=== PATIENT | male | born 1960 | race Caucasian/White ===

== ENCOUNTER 2018-01-31 08:30 | Inpatient (IN) ==
[2018-01-25 18:15] LABS: Appearance,Urine CLEAR; Bilirubin,Urine NEG (NEG); Color,Urine YELLOW; Glucose,Urine (UA) NEGATIVE (NEG); Leukocyte Esterase,Urine NEG /uL (NEG); Protein,Urine NEG (NEG); Specific Gravity,Urine 1.014 (1.000-1.035); Urine Blood NEG mg/dL (<0.03); Urobilinogen,Urine NEG (NEG)
[2018-01-25 18:33] LABS: Basophils # (Auto) 0 K/mcL (0.0-0.3); Basophils % (Auto) 0.5 % (0.0-2.0); Eosinophils # (Auto) 0.2 K/mcL (0.0-0.7); Eosinophils % (Auto) 2.3 % (0.0-7.0); Granulocytes % (Auto) 59.5 % (38.0-78.0); Lymphocytes # (Auto) 2.5 K/mcL (1.5-4.8); Lymphocytes % (Auto) 29.8 % (15.5-49.0); Mean Cell Volume 91.2 fL (80.0-100.0); Mean Corpuscular HGB Conc 33.3 g/dL (31.0-36.0); Mean Corpuscular Hemoglobin 30.3 pg (26.0-34.0); Monocytes # (Auto) 0.7 K/mcL (0.1-0.9); Monocytes % (Auto) 7.9 % (1.0-12.0); Platelet Count 307 K/mcL (140-440); RBC 4.77 M/mcL (4.50-5.90); Red Cell Distribution Width 14.3 % (11.5-14.5)
[2018-01-25 19:20] LABS: Blood Urea Nitrogen 6 mg/dl (6-20)
[~2018-01-31 08:30] MED LIST: 0.9 % SODIUM CHLORIDE 9 ML, KETOROLAC 30 MG, ROPIVACAINE HCL/PF 49.5 ML, EPINEPHrine 0.... IJ SCH; CELECOXIB 200 MG CAPSULE PO SCH; PREGABALIN 75 MG CAPSULE PO SCH; ceFAZolin 1 GM VIAL IV SCH
[2018-01-31] MEDS ORDERED: oxyCODONE 10 MG TAB.ER.12H PO SCH (10:15)
[2018-01-31] MEDS ORDERED: NICOTINE 21 MG PATCH TOPICAL ONE (11:16)
[2018-01-31] MEDS ORDERED: DEXAMETHASONE 10 MG/ML VIAL IV ONE (12:45)
[2018-01-31] MEDS ORDERED: KETAMINE 100 MG/ML ML IV ONE (12:45)
[2018-01-31] MEDS ORDERED: ePHEDrine 50 MG/ML AMPUL IV ONE (12:45)
[2018-01-31] MEDS ORDERED: MIDAZOLAM 2 MG/2 ML VIAL IV ONE (12:45)
[2018-01-31] MEDS ORDERED: LIDOCAINE HCL/PF 100 MG/5 ML SYRINGE IV ONE (12:45)
[2018-01-31] MEDS ORDERED: PROPOFOL 200 MG/20 ML VIAL IV ONE (12:45)
[2018-01-31] MEDS ORDERED: TRANEXAMIC ACID 1,000 MG/10 ML VIAL IV ONE (12:45)
[2018-01-31] MEDS ORDERED: ROPIVACAINE HCL/PF 20 ML VIAL IJ ONE (12:45)
[2018-01-31] MEDS ORDERED: GLYCOPYRROLATE 0.2 MG/ML VIAL IV ONE (12:45)
[2018-01-31] MEDS ORDERED: PHENYLEPHRINE 10 MG/ML VIAL IV ONE (12:45)
[2018-01-31] MEDS ORDERED: ONDANSETRON 4 MG/2 ML VIAL IV ONE (12:45)
[2018-01-31] MEDS ORDERED: GENTAMICIN SULFATE 800 MG/20 ML VIAL IR ONE (13:05)
[2018-01-31] MEDS ORDERED: METHOCARBAMOL 1,000 MG/10 ML VIAL IV PRN (13:25)
[2018-01-31] MEDS ORDERED: LACTATED RINGERS 250 ML IV PRN (13:25)
[2018-01-31] MEDS ORDERED: BENZOCAINE/MENTHOL 1 LOZENGE PO PRN ×2 (13:25→14:33)
[2018-01-31] MEDS ORDERED: IPRATROPIUM/ALBUTEROL 3 ML AMPUL.NEB NEB PRN (13:25)
[2018-01-31] MEDS ORDERED: FLUMAZENIL 0.1 MG/ML ML IV PRN (13:25)
[2018-01-31] MEDS ORDERED: METOCLOPRAMIDE 10 MG/2 ML VIAL IV PRN (13:25)
[2018-01-31] MEDS ORDERED: ONDANSETRON 4 MG/2 ML VIAL IV PRN ×2 (13:25→14:33)
[2018-01-31] MEDS ORDERED: fentaNYL 100 MCG/2 ML VIAL IV PRN (13:25)
[2018-01-31] MEDS ORDERED: ACETAMINOPHEN 1,000 MG/100 ML BOTTLE IV ONE (13:25)
[2018-01-31] MEDS ORDERED: NALOXONE HCL 0.4 MG/ML VIAL IV PRN (13:25)
[2018-01-31] MEDS ORDERED: KETOROLAC 30 MG/ML VIAL IV PRN (13:25)
[2018-01-31] MEDS ORDERED: LACTATED RINGERS 1,000 ML IV SCH (13:30)
--- NOTE | 2018-01-31 14:32 | Brief Operative Note ---
Date of procedure: 01/31/18 Pre-op diagnosis: left knee oa Post-op diagnosis: same Procedure: left total knee arthroplasty Grafts/Implants: Yes Anesthesia: spinal Complications: none Surgeon: Vel Camp Tar Chaser: Radha Pichardo Estimated blood loss (cc): 150 Tourniquet Time (Minutes): 68 Specimens Removed/Pathology: none sent Condition: stable Disposition: PACU
[2018-01-31] MEDS ORDERED: FLEETS ADULT ENEMA PR PRN (14:33)
[2018-01-31] MEDS ORDERED: ONDANSETRON ODT 4 MG TABLET SL PRN (14:33)
[2018-01-31] MEDS ORDERED: TRANEXAMIC ACID 1,000 MG/10 ML VIAL IV SCH (14:33)
[2018-01-31] MEDS ORDERED: MAGNESIUM HYDROXIDE 30 ML ORAL.SUSP PO PRN (14:33)
[2018-01-31] MEDS ORDERED: POLYETHYLENE GLYCOL 3350 17 GM PACKET PO PRN (14:33)
[2018-01-31] MEDS ORDERED: BISACODYL 10 MG SUPP.RECT PR PRN (14:33)
[2018-01-31] MEDS ORDERED: METHOCARBAMOL 500 MG TABLET PO SCH (14:45)
--- NOTE | 2018-01-31 15:16 | XRay Report ---
HISTORY: Postop left knee arthroplasty FINDINGS: There is a well-positioned left total knee prosthesis. No fracture is present. There are small soft tissue calcifications along the anterior and lateral margin of the joint. IMPRESSION: Well-positioned left knee prosthesis Interpreted and Authenticated by: Suhas Canada 01/31/18
--- NOTE | 2018-01-31 15:39 | Operative Note ---
DATE OF OPERATION: 01/31/2018 PREOPERATIVE DIAGNOSIS: Degenerative joint disease, left knee. POSTOPERATIVE DIAGNOSIS: Degenerative joint disease, left knee. PROCEDURE: Left total knee arthroplasty. SURGEON: Lynsey Camp M.D. RECOVERY ROOM RN SURGEON: Radha Pichardo PA-C ANESTHESIA: Spinal with LMA assist. ESTIMATED BLOOD LOSS: 150 mL COMPLICATIONS: None noted. SPECIMENS REMOVED: None. DRAINS: None. TOURNIQUET TIME: 63 minutes at 300 mmHg. IMPLANTS: DePuy Attune tibial insert fixed bearing posterior stabilized size 9, 6 mm AOX, DePuy Attune patella medialized dome 41 mm cemented AOX, DePuy Attune femoral posterior stabilized size 9 left cemented, DePuy Attune tibial based fixed bearing size 7 cemented. INDICATIONS: The patient has had a long-standing history of worsening pain in the knee that has failed conservative treatment. Radiographs have confirmed advanced degenerative joint disease. After a long discussion about treatment options, the patient elected to proceed with a knee arthroplasty. The risks and benefits were discussed with the patient in detail including, but not limited to, the risks of anesthesia, problems with the heart or lungs related to anesthesia, infection, compromise or injury to the nerves and blood vessels, deep venous thrombosis, pulmonary embolism, pneumonia, continued pain after surgery, worsening pain or symptoms after surgery, swelling, loss of motion, instability, leg length discrepancy, and need for repeat surgery. DESCRIPTION OF PROCEDURE: The patient was seen in the pre-anesthesia waiting room where all questions were answered and the correct side and site were identified and marked. The patient was transferred to the operating room and administered the anesthetic and given pre-operative antibiotics. A time-out was then called. The extremity was prepped and draped, exsanguinated, and the tourniquet was inflated to 300 mmHg. A midline skin incision was then made with a standard medial parapatellar arthrotomy. Debridement of the menisci, ACL, and PCL was performed followed by balancing releases in the medial lateral plane. We then established intramedullary access to both the femur and tibia in a standard fashion. The femoral guide sandra was initially placed with the distal femoral guide, pinned into place, and the distal femoral cut was performed and checked with a flat plate. We then turned our attention to the tibia. The intramedullary guide was placed with the proximal tibial cutting block. The block was appropriately positioned off the affected side, varus and valgus was checked with the extra-medullary guide, and the block was pinned into place. The proximal tibial cut was performed and the tibia was prepared for the tibial implant with appropriate rotation. The tibia, femur, and posterior compartment were debrided of osteophytes, loose bodies, and meniscal fragments We then used the gap balancing technique to balance extension with the first two cuts and good balancing was obtained with a 10 millimeter gap block. We turned our attention back to the femur and used the referencing block and implant to size appropriately. Using the gap balancing technique for the flexion space we set our rotation of the femur off the tibial cut. Anesthesia gave the patient 1 gram of Tranexamic Acid via an intravenous route. We placed the 4 in 1 cutting block and made anterior, posterior, and chamfer cuts. Box plasty cuts were then made in a standard fashion for the posterior stabilized prosthesis. We then completed osteophyte release and posterior capsule release from the posterior compartment. Trials were placed and we chose the polyethylene insert thickness that provided the best stability in all planes. With the trials in place, we did a measured resection for a resurfacing patella. We sized the patella and placed the patella trial and performed a lateral facetectomy with the saw and rongeur. Good tracking was obtained. We removed all trials, irrigated and dried all cut surfaces. We cemented the components into place including tibia, femur and patella. We placed a trial liner and held the knee in full extension with the patella compressed while the cement cured. We then removed all excess cement and placed the final polyethylene tibiofemoral component. Irrigation with 3 liters of antibiotic saline was then performed using jet-lavage. We let the tourniquet down and coagulated bleeding vessels. We injected a 100 cubic centimeter volume including Ropivacaine 49.25 cubic centimeters at 5 milligrams per cubic centimeter, Ketorolac 30 milligrams, and Epinephrine 0.5 milligrams into 100 cubic centimeters volume of normal saline. We placed a deep drain and closed the retinaculum with looped #0 Maxon. We closed the subcutaneous tissue and skin in layers out to nemesio in the skin. A sterile pressure dressing was applied. All needle and sponge counts were correct. The patient was transferred to the recovery room in stable condition. MIKE:[email or web address] Job ID: [id number] Doc ID: [id number] Lynsey Camp MD
[2018-01-31] MEDS: 0.9 % SODIUM CHLORIDE 1,000 ML IV SCH (15:52)
[2018-01-31] MEDS: HYDROcodone/APAP 10/325MG TABLET PO PRN ×3 (16:28→22:33)
[2018-01-31] MEDS: METHOCARBAMOL 750 MG TABLET PO PRN (16:32)
[2018-01-31] MEDS ORDERED: HYDROmorphone 2 MG TABLET PO SCH (18:00)
[2018-01-31] MEDS: KETOROLAC 30 MG/ML VIAL IV SCH (18:10)
[2018-01-31] MEDS: HYDROmorphone 2 MG/ML VIAL IV PRN ×2 (19:43→22:33)
[2018-01-31] MEDS: SENNOSIDES 1 TABLET PO SCH (20:26)
[2018-01-31] MEDS: DOCUSATE SODIUM 100 MG CAPSULE PO SCH (20:26)
[2018-01-31] MEDS: ASPIRIN 325 MG ENTERIC COATED TABLET PO SCH (20:27)
[2018-01-31] MEDS: ceFAZolin 1 GM VIAL IV SCH (20:27)
[2018-01-31] MEDS: PRAMIPEXOLE DI HCL 1.5 MG PO SCH (22:34)
[2018-01-31] MEDS: 0.9 % SODIUM CHLORIDE 10 ML SYRINGE IV SCH (22:35)
[2018-02-01] MEDS: HYDROcodone/APAP 10/325MG TABLET PO PRN ×7 (00:32→23:07)
[2018-02-01] MEDS: 0.9 % SODIUM CHLORIDE 1,000 ML IV SCH ×4 (00:32→23:08)
[2018-02-01] MEDS: KETOROLAC 30 MG/ML VIAL IV SCH ×5 (00:32→23:07)
[2018-02-01] MEDS: HYDROmorphone 2 MG/ML VIAL IV PRN ×5 (01:17→16:25)
[2018-02-01] MEDS ORDERED: DIAZEPAM 2 MG TABLET PO ONE (01:44)
[2018-02-01] MEDS ORDERED: DIAZEPAM 5 MG TABLET PO ONE (01:46)
[2018-02-01] MEDS ORDERED: DIAZEPAM 5 MG TABLET ONE (01:56)
[2018-02-01] MEDS: METHOCARBAMOL 750 MG TABLET PO PRN ×3 (02:39→14:54)
[2018-02-01] MEDS: ceFAZolin 1 GM VIAL IV SCH (05:00)
[2018-02-01] MEDS: 0.9 % SODIUM CHLORIDE 10 ML SYRINGE IV SCH ×3 (05:04→23:09)
--- NOTE | 2018-02-01 07:24 | Orthopedic Progress Note ---
Subjective Patient information: Note initiated : 02/01/18 at 7:20 am Service Date, if different from initiated Date: [] Patient: Nathen Mckeon 57 y/o M admitted on 01/31/18 for Left Total Knee Arthroplasty. Chief Complaint: [POD #1 s/p left TKA Doing okay. Reports moderate to severe pain. Has not yet ambulated independently and is requesting more pain medication. Denies CP, SOB, numbness, tingling, calf pain. Chronically takes opioids and has high tolerance to pain medication. ] Objective Vital signs: Vital Signs Temp Pulse Resp BP BP Pulse Ox 02/01/18 04:00 97.9 F 88 24 H 110/73 93 02/01/18 00:00 98.6 F 91 H 24 H 116/72 93 01/31/18 20:09 98.9 F 107 H 24 H 135/81 92 01/31/18 19:54 112 H 139/83 01/31/18 19:39 116 H 155/81 93 01/31/18 19:24 106 H 146/93 94 01/31/18 19:09 123 H 143/87 01/31/18 18:54 109 H 127/77 01/31/18 18:41 107 H 95 01/31/18 18:24 106 H 117/66 92 01/31/18 18:11 101 H 109/74 96 01/31/18 17:54 95 H 131/81 95 01/31/18 15:45 136/75 95 01/31/18 15:28 97.2 F 78 14 141/79 93 01/31/18 15:19 79 12 140/83 93 01/31/18 15:14 78 11 L 119/79 93 01/31/18 15:09 82 11 L 113/68 91 01/31/18 15:04 80 12 135/74 92 01/31/18 14:59 84 12 126/76 93 01/31/18 14:54 97.9 F 82 14 144/84 96 01/31/18 09:36 97.3 F 20 128/84 96 Intake and Output 01/31/18 02/01/18 02/01/18 21:59 05:59 13:59 Intake Total 1899 2551 / 2551 Output Total 575 / 575 Balance [id number] Intake: IV 1000 / 1000 Sodium Chloride 0.9% 1,000 ml @ 1000 / 1000 125 mls/hr IV .Q8H [facility] Rx#: [id number] Oral 1551 / 1551 IV - Manual Only 1899 Output: Void Amount 575 / 575 Estimated Blood Loss Other: Urine Appearance Clear Clear Straight Clear Urine Color Bright Yellow Bright Yellow Straight Bright Yellow Urine Odor Strong Weight 258 lb Intake & Output: Intake & Output 01/31/18 02/01/18 02/01/18 21:59 05:59 13:59 Intake Total 1899 2551 / 2551 Output Total 575 / 575 Balance 1869 Weight 258 lb Intake: IV 1000 / 1000 Sodium Chloride 0.9% 1,000 ml @ 1000 / 1000 125 mls/hr IV .Q8H [facility] Rx#: [id number] Oral 1551 / 1551 IV - Manual Only 1899 Output: Void Amount 575 / 575 Estimated Blood Loss Other: Urine Appearance Clear Clear Straight Clear Urine Color Bright Yellow Bright Yellow Straight Bright Yellow Urine Odor Strong Incision: Yes healing, No draining, No red, No swollen, No inflamed, Yes clean and dry Incision clean and dry: Yes Dressing: Yes clean, Yes dry, Yes intact Weight bearing status: as tolerated Range of motion: full ankle/feet Neurological exam IM: Yes alert, Yes oriented X3, Yes motor sensory intact, Yes neurovascular intact Extremities exam IM: No calf tenderness, Yes normal capillary refill, Yes Foot pink and warm, Yes neurovascular intact - Periperhal Pulses Peripheral pulses: 2+: dorsalis pedis (L), dorsalis pedis (R), posterior tibialis (L), posterior tibialis (R) - Labs CBC & BMP: 02/01/18 04:52 01/25/18 16:56 Labs: Orthopedic Labs 01/31/18 09:42 PT 11.9 INR 0.9 02/01/18 01/25/18 04:52 16:56 Hgb 13.1 L 14.5 Hct 38.6 L 43.5 Assessment and Plan (1) Total knee replacement status POD #1 s/p left TKA: -increase pain medication -ice routinely -WBAT -d/c potentially to SNF, patient wanting to talk to daughter -PT Status: Acute
[2018-02-01] MEDS: OMEPRAZOLE 20 MG CAPSULE PO SCH (08:07)
[2018-02-01] MEDS: ASPIRIN 325 MG ENTERIC COATED TABLET PO SCH ×2 (08:07→21:01)
[2018-02-01] MEDS: DOCUSATE SODIUM 100 MG CAPSULE PO SCH ×2 (08:07→21:00)
[2018-02-01] MEDS: ESCITALOPRAM 10 MG TABLET PO SCH (08:07)
[2018-02-01] MEDS: HYDROmorphone 2 MG TABLET PO PRN ×3 (08:09→21:01)
[2018-02-01] MEDS ORDERED: NICOTINE 21 MG PATCH TOPICAL SCH (10:00)
[2018-02-01] MEDS: NICOTINE 21 MG PATCH TOPICAL SCH (16:29)
[2018-02-01] MEDS: SENNOSIDES 1 TABLET PO SCH (21:00)
[2018-02-01] MEDS: PRAMIPEXOLE DI HCL 1.5 MG PO SCH (21:01)
[2018-02-02] MEDS: HYDROmorphone 2 MG TABLET PO PRN ×4 (01:01→13:40)
[2018-02-02] MEDS: HYDROcodone/APAP 10/325MG TABLET PO PRN ×3 (03:03→11:02)
[2018-02-02] MEDS: 0.9 % SODIUM CHLORIDE 10 ML SYRINGE IV SCH (05:21)
[2018-02-02] MEDS: KETOROLAC 30 MG/ML VIAL IV SCH (05:21)
--- NOTE | 2018-02-02 07:16 | Orthopedic Progress Note ---
Subjective Patient information: Note initiated : 02/02/18 at 7:15 am Service Date, if different from initiated Date: [] Patient: Nathen Mckeon 57 y/o M admitted on 01/31/18 for Left Total Knee Arthroplasty. Chief Complaint: [] Interval history: doing well. no complaints Objective Vital signs: Vital Signs Temp Pulse Resp BP Pulse Ox 02/02/18 03:05 97.6 F 76 20 155/95 97 02/01/18 23:08 97.6 F 83 20 152/87 94 02/01/18 19:44 98.6 F 93 H 20 156/91 95 02/01/18 16:00 98.2 F 86 22 148/85 96 02/01/18 11:46 98.4 F 87 22 116/75 93 02/01/18 08:00 97.5 F 74 24 H 117/70 91 Intake and Output 02/01/18 02/02/18 02/02/18 21:59 05:59 13:59 Intake Total 360 / 360 400 / 400 Balance 360 / 360 400 / 400 Intake: Oral 360 / 360 400 / 400 Other: Meal Dinner Dinner Percent of Meal Consumed 100% 100% Feeding Ability Independent Independent # Voids 1 1 Weight 259 lb Intake & Output: Intake & Output 02/01/18 02/02/18 02/02/18 21:59 05:59 13:59 Intake Total 360 / 360 400 / 400 Balance 360 / 360 400 / 400 Weight 259 lb Intake: Oral 360 / 360 400 / 400 Other: Meal Dinner Dinner Percent of Meal Consumed 100% 100% Feeding Ability Independent Independent # Voids 1 1 Incision: Yes healing Incision clean and dry: Yes Dressing: Yes clean, Yes dry, Yes intact Weight bearing status: full Neurological exam IM: Yes abnormal gait, Yes alert, Yes oriented X3, Yes motor sensory intact, Yes neurovascular intact Extremities exam IM: No calf tenderness, Yes Foot pink and warm, Yes neurovascular intact - Labs CBC & BMP: 02/02/18 04:40 01/25/18 16:56 Labs: Orthopedic Labs 01/31/18 09:42 PT 11.9 INR 0.9 02/02/18 02/01/18 01/25/18 04:40 04:52 16:56 Hgb 11.4 L 13.1 L 14.5 Hct 34.0 L 38.6 L 43.5 Assessment and Plan (1) Total knee replacement status pod 2 s/p tka wbat pain control dvt prophylaxis dc planning Status: Acute
--- NOTE | 2018-02-02 07:17 | Discharge Summary ---
Ortho Discharge - TKA - Patient Instructions Diet: Regular Diet Activity: activity as tolerated, ambulate with assistive device, weight bearing as tolerated Total Knee Protocol: For Total Knee: Start ROM ELIZA with stationary bike or rocking chair. Work on gaining full extension of knee. Posterior dislocation precautions provided. Hip abductor strengthening and gait training instructions provided. Apply Cryocuff as instructed. Dressing Care: May shower in 2 days Patient Education: Total Knee Replacement (DC) Additional Instructions: Discharge Instructions: Do the exercises at home that physical therapy gave you throughout the day. Weight bearing as tolerated. Wear comfortable clothing for physical therapy. Take your prescription, photo ID, insurance cards, and current medication list with you to your first physical therapy appointment. Take your prescription to warehouse order picker any medication or equipment (such as walker, crutches, toilet riser or C.P.M.) You have Dermabond (a dressing with a mesh-like appearance), DO NOT remove mesh. Cover site daily with gauze dressing. You may start showering on post op day #2. The Dermabond dressing can get wet, do not scrub dressing. Pat dry, then place new dressing (above). To avoid constipation while taking any narcotic pain medication, take an over the counter stool softener/laxative. Use your Cryocuff or ice packs as directed, on for 20 minutes at a time throughout the day. This and elevation will help with pain and swelling. Call your physician for fevers above 100.5 or pain not controlled by medication. Your prescriptions are with your discharge information. Some medications were electronically transmitted to your pharmacy of choice. Take Aspirin twice daily, for 30 days, as prescribed to prevent blood clots ( see medication list). - Problem Maintenance (1) Total knee replacement status Status: Acute - Follow Up Plan Follow Up Appointments: Vel Camp MD [Physician] - 02/15/18 2:00 pm Disposition: Home Health Service Prognosis: Good Rehab Potential: Good I certify that the patient requires SNF services: No Overall status at discharge: patient is progressing back to baseline
[2018-02-02] MEDS: METHOCARBAMOL 750 MG TABLET PO PRN ×2 (07:37→13:39)
[2018-02-02] MEDS: OMEPRAZOLE 20 MG CAPSULE PO SCH (07:45)
[2018-02-02] MEDS: DOCUSATE SODIUM 100 MG CAPSULE PO SCH (08:02)
[2018-02-02] MEDS: ASPIRIN 325 MG ENTERIC COATED TABLET PO SCH (08:02)
[2018-02-02] MEDS: ESCITALOPRAM 10 MG TABLET PO SCH (08:02)
[2018-02-02] MEDS: NICOTINE 21 MG PATCH TOPICAL SCH (10:30)
== END 2018-02-02 14:00 | disposition home health service (06) | DRG 470 ==
LOC: MEDSUR 09:04
PROVIDERS: ADMIT Orthopaedic Surgery Sports Medicine; ATTEND Orthopaedic Surgery Sports Medicine